=== PATIENT | female | born 1995 | race Caucasian/White ===

== ENCOUNTER → 2023-01-24 12:22 | Outpatient (CLI) | payer OTHER, SELFPAY ==
[2023-01-24 12:56] LABS: Add Manual Diff / Slide Review NO; Basophils Absolute Auto 100 /uL (0-100); Basophils Percent Auto 0.7 % (0-2); Eosinophils Absolute Auto 100 /uL (0-450); Hemoglobin 12.8 g/dL (12.0-16.0); Lymphocytes Absolute Auto 2500 /uL (1100-4500); Lymphocytes Percent Auto 22.2 % (25-40); Mean Corpuscular HGB Conc 34.6 % (30-36); Mean Corpuscular Hemoglobin 30.2 PG (26-34); Mean Corpuscular Volume 87.5 fL (80-100); Monocytes Absolute Auto 600 /uL (0-900); Monocytes Percent Auto 4.8 % (3-14); Neutrophils Absolute Auto 8200 /uL (1500-7000); Neutrophils Percent Auto 71.3 % (50-75); Platelet Count 314 X10^3/uL (150-400); Red Blood Cell Count 4.23 X10^6/uL (4.0-5.2); Red Cell Distribution Width 12.9 % (11.6-14.8); White Blood Cell Count 11.5 X10^3/uL (4.5-11.0)
[2023-01-24 13:23] LABS: Appearance Urine UA CLEAR; Bilirubin Urine UA NEGATIVE (NEGATIVE); Color Urine UA YELLOW; Glucose Urine UA NEGATIVE (Negative); Ketones Urine UA NEGATIVE (NEGATIVE); Leukocyte Esterase Urine UA NEGATIVE (NEGATIVE); Nitrite Urine UA NEGATIVE (Negative); Occult Blood Urine UA NEGATIVE (Negative); Protein Urine UA NEGATIVE (Negative); Urobilinogen Urine UA 0.2 E.U./dL (0.2)
[2023-01-24 16:01] LABS: Hepatitis B Surface Antigen NEGATIVE s/c (NEGATIVE); Rubella Antibody IgG 44.6 IU/mL (>15)
[2023-01-24 16:11] LABS: HIV 1 & 2 Ab/Ag 4th Gen Combo NEGATIVE (NEGATIVE); Hep C Virus Ab w/Reflex Quant NEGATIVE s/c (NEGATIVE)
[2023-01-25 07:50] LABS: Varicella IgG Antibody 785 index (Immune >165)
[2023-01-26 06:01] LABS: RPR Screen Non Reactive (Non Reactive)
== END ==
PROVIDERS: Referring Provider Family Medicine; Visit Provider Family Medicine
DX: Z34.01 Encounter for supervision of normal first pregnancy, first trimester (principal)
CPT/HCPCS: 36415; 80055; 81003; 86787; 86803; 86850; 86900; 86901; 87086; 87389

== ENCOUNTER → 2023-03-23 15:24 | Outpatient (CLI) | payer OTHER, SELFPAY ==
[2023-03-25 20:44] LABS: AFP, Serum 30.8 ng/mL (.); Estriol, Free 1.52 ng/mL (.); Maternal Ethnicity Caucasian (.); Maternal Weight 172 lbs (.); Number of Fetuses No (.); OSBR Risk 1 IN 10000 (.); Results Report (.); Test Results *Screen Negative* (.); hCG, MoM 0.84 (.); hCG, Serum 27040 mIU/mL (.)
== END ==
PROVIDERS: Referring Provider Family Medicine; Visit Provider Family Medicine
DX: Z34.02 Encounter for supervision of normal first pregnancy, second trimester (principal); Z3A.16 16 weeks gestation of pregnancy
CPT/HCPCS: 36415; 82105; 82677; 84702; 86336

== ENCOUNTER → 2023-04-12 07:39 | Outpatient (CLI) | payer OTHER, SELFPAY ==
--- NOTE | 2023-04-12 | DI.US.S_ITS ---
PROCEDURE: US OB >= 14 WEEKS FETUS INDICATIONS: ANATOMY SCAN OUTSIDE/PRIOR DATING DATA: Last menstrual period (LMP): 11/26/2022 LMP-based estimated date of delivery (JAYLEEN): 09/02/2023 First dating scan (date and location): 01/24/2023, images not available. Estimated date of delivery (JAYLEEN) from first dating scan: 08/30/2023 Working JAYLENE is 09/02/2023 as provided by the referring clinician. TECHNIQUE: Real-time scanning was performed of the fetus, with image documentation and biometric measurements. COMPARISON: None. FINDINGS: General: A single living intrauterine gestation is present. Presentation: Breech. Placenta: Placental position is posterior and is marginally low lying 1.9 cm from the cervical os. Amniotic fluid index: 11.5 cm, normal range is 5-24 cm. Single deepest vertical pocket is 3.5 cm. heart rate: 165 beats per minute. Maternal cervical canal: 6.9 cm long. Normal lower limit is 2.5 cm. biometrics: Biparietal diameter: 4.9 cm Head circumference: 18.4 cm Abdominal circumference: 15.6 Femur length: 3.3 cm Clinically estimated gestational age: 19 weeks, 4 days by LMP Composite gestational age from present scan: 20 weeks 4 days Estimated weight and percentile: 353 g, 89th percentile Anatomic survey: Neuro: Ventricles are non-dilated at less than 10 mm. Cisterna magna is normal at 3-11 mm. Cerebellum is normal in size and morphology. Nuchal skin fold: Normal at less than 6 mm between 14-21 weeks gestational age. Face: Nose and lips, facial profile are normal. Spine: No evidence for spina bifida. Heart: 4-chambered heart is present, with normal ventricular outflow tracts. Diaphragm: Diaphragm is intact. Stomach: Left-sided stomach is present. Kidneys: No hydronephrosis. Normal is less than 5 mm in 2nd trimester, less than 7 mm in 3rd trimester. Cord: 3-vessel cord has orthotopic insertion. Bladder: Normal in size. Extremities: All 4 extremities identified. IMPRESSION: 1. Single viable intrauterine with clinical JAYLEEN 09/02/2023 based on LMP, which is concordant with biometry. 2. Normal anatomy. 3. Marginal low-lying placenta 1.9 cm from the cervical os. Recommend short-term follow-up. We strive to produce accurate, complete, and clear reports of imaging services. To assist us in improving patient care, this report was composed using standard report templates and voice recognition software. Therefore, it may contain abnormal punctuation, insertions and/or omissions. Occasional wrong-word or sound-alike substitutions may occur. Though we review the report and make efforts to correct it, we do recommend that the report be read carefully in proper context to recognize any text inaccuracies. Measurement variability for biometric dating: +/- 7 days from 14 weeks to 15 weeks 6 days gestation, +/- 10 days from 16 weeks to 21 weeks 6 days gestation, +/- 2 weeks from 22 weeks to 27 weeks 6 days gestation, +/- 3 weeks for 28 weeks gestation or later. weight reference: 4500 g or EFW >90/95% is considered macrosomia or large for gestational age. EFW <10% is small for gestational age. EFW 5% or less is considered intra-uterine growth restriction. Dictated by: Chikis Kirkpatrick M.D. on 04/12/2023 at 17:16 Approved by: Chikis Kirkpatrick M.D. on 04/13/2023 at 15:03
== END ==
PROVIDERS: Referring Provider Family Medicine; Visit Provider Family Medicine
DX: Z3A.20 20 weeks gestation of pregnancy; O44.42 Low lying placenta NOS or without hemorrhage, second trimester
CPT/HCPCS: 76811

== ENCOUNTER → 2023-05-17 06:51 | Outpatient (CLI) | payer OTHER, SELFPAY ==
--- NOTE | 2023-05-17 06:53 | DI.US.S_ITS ---
PROCEDURE: US OB LIMITED INDICATIONS: LOW-LYING PLACENTA OUTSIDE/PRIOR DATING DATA: Last menstrual period (LMP): 11/26/2022. LMP-based estimated date of delivery (JAYLEEN): 09/02/2023 (working JAYLEEN). First dating scan (date and location): 01/24/2023. Estimated date of delivery (JAYLEEN) from first dating scan: 08/30/2023. TECHNIQUE: Real-time scanning was performed of the fetus, with image documentation. COMPARISON: [facility], OB >= 14 WEEKS FETUS, 04/12/2023, 8:31. FINDINGS: A single living intrauterine gestation is present. Presentation: Transverse. Placenta: Placental position is posterior, without previa. Cervix to lower edge of the placenta now measures 2.2 centimeters. Amniotic fluid index: 17.6 cm, normal range is 5-24 cm. Single deepest vertical pocket is 5.2 cm. heart rate: 144 beats per minute. Maternal cervical canal: 5.1 cm long. Normal lower limit is 2.5 cm. Estimated gestational age is 24 weeks and 4 days IMPRESSION: On these transabdominal images, the inferior edge of the placenta is 2.2 centimeters from the internal os. Dictated by: Raman Daly M.D. on 05/17/2023 at 12:49 Approved by: Raman Daly M.D. on 05/17/2023 at 12:53
== END ==
PROVIDERS: Referring Provider Family Medicine; Visit Provider Family Medicine
DX: Z36.89 Encounter for other specified antenatal screening (principal); Z3A.24 24 weeks gestation of pregnancy
CPT/HCPCS: 76815

== ENCOUNTER → 2023-06-08 11:49 | Outpatient (CLI) | payer OTHER, SELFPAY ==
[2023-06-08 14:22] LABS: Add Manual Diff / Slide Review NO; Basophils Absolute Auto 0 /uL (0-100); Basophils Percent Auto 0.4 % (0-2); Eosinophils Absolute Auto 100 /uL (0-450); Eosinophils Percent Auto 0.9 % (2-4); Hematocrit 35.9 % (36-46); Hemoglobin 12.3 g/dL (12.0-16.0); Lymphocytes Absolute Auto 2000 /uL (1100-4500); Lymphocytes Percent Auto 19.4 % (25-40); Mean Corpuscular HGB Conc 34.1 % (30-36); Mean Corpuscular Hemoglobin 30.8 PG (26-34); Mean Corpuscular Volume 90.1 fL (80-100); Monocytes Absolute Auto 500 /uL (0-900); Monocytes Percent Auto 5.2 % (3-14); Neutrophils Absolute Auto 7500 /uL (1500-7000); Neutrophils Percent Auto 74.1 % (50-75); Platelet Count 255 X10^3/uL (150-400); Red Blood Cell Count 3.98 X10^6/uL (4.0-5.2); White Blood Cell Count 10.2 X10^3/uL (4.5-11.0)
[2023-06-08 14:56] LABS: GTT (PREG) 1 Hour PP 50gm Dose 90 mg/dL (76-139)
== END ==
PROVIDERS: PCP Family Medicine; Referring Provider Family Medicine; Visit Provider Family Medicine
DX: Z34.01 Encounter for supervision of normal first pregnancy, first trimester (principal)
CPT/HCPCS: 36415; 82950; 85025; 86850

== ENCOUNTER → 2023-08-09 11:30 | Outpatient (CLI) | payer OTHER, SELFPAY ==
[2023-08-10 14:09] LABS: Strep Grp B PCR NEG for Grp B Strep
== END ==
PROVIDERS: PCP Family Medicine; Visit Provider Family Medicine
DX: Z34.01 Encounter for supervision of normal first pregnancy, first trimester (principal)
CPT/HCPCS: 87653

== ENCOUNTER 2023-08-26 10:08 | Outpatient (CLI) | payer OTHER, SELFPAY ==
--- NOTE | 2023-08-26 11:00 | P.TNLD_ITS ---
Visit Information Visit Information Date of evaluation: 08/26/23 Primary OB Provider: Susan Chapman Comments/Additional reasons for admission: 28yo at 39w0d here due to concerns for LOF. Pt reports feeling a gush of fluid this morning. She denies any vaginal bleeding or contractions. She is feeling her baby move regularly. [facility] Medical History (Updated 08/26/23 @ 11:16 by Susan Chapman MD) Asthma (~2005) Surgical History (Updated 02/22/23 @ 20:08 by Dahlia Wasserman) Plica of knee (~06/2010) Family History (Updated 02/22/23 @ 20:10 by Dahlia Wasserman) Mother Hypothyroid Father Heart disease Hypertension Hyperlipidemia Grandmother Dementia Grandfather Skin cancer Hodgkin's lymphoma Grandfather COPD (chronic obstructive pulmonary disease) Diabetes mellitus Grandmother Dementia Social History marital status: number of children: 0 household members: spouse lives independently: Yes caregiver/support person: No housing: house pets and animals: Yes (1 cat, 1 dog; manages litter box) education level: college (tam's degree) occupational status: employed (part-time works from home) current occupational exposures/hazards: No special pamela needs: No travel history: recent (domestic, [place]) seatbelt use: always water heater temp set < 120 deg: Yes working smoke detector in home: Yes fire extinguisher in home: Yes carbon monox detector in home: Yes firearms in home: No do you feel safe at home: Yes Smoking Status: Never smoker second hand exposure: No alcohol intake: former (Occasionally when not ) substance use type: does not use during the past year weight has: remained stable well-balanced diet: daily or most days daily servings fruits/ve-4 caffeine: Yes (AM cup coffee) Type(s) of exercise: walking frequency: daily duration: 15-30 minutes/day Evaluation Evaluation Baseline heart rate: 120 Variability: Moderate (11-25) monitor accelerations: Present Monitor Decelerations: Absent Category of Tracing: Reactive Non-invasive Membranes Rupture Test: negative Diagnosis, Plan/Disposition Final Diagnosis (1) Vaginal discharge: Status: Acute Plan/Disposition Plan: 28yo at 39w0d here due to concerns for LOF. Amniosure negative. NST reactive, no contractions. Stable for d/c home. OB Disposition: home
== END 2023-08-26 11:10 | disposition home or self-care (01) ==
LOC: LABOR 10:26 → OB 08-29 11:56
PROVIDERS: PCP Family Medicine; Referring Provider Family Medicine; Visit Provider Family Medicine
DX: N89.8 Other specified noninflammatory disorders of vagina (principal)
CPT/HCPCS: 59025; 84112; G0378; G0379

== ENCOUNTER 2023-08-28 19:27 | Inpatient (IN) | payer OTHER, SELFPAY ==
[2023-08-28 20:59] LABS: Aspartate Aminotransferase 30 IU/L (14-36); BUN Creatinine Ratio 14.3 (6-22); Blood Urea Nitrogen 9 mg/dL (7-17); Estimated Glomerular Filt Rate > 60 mL/min (>60); Uric Acid 4.5 mg/dL (2.5-6.2)
[2023-08-28 21:05] LABS: Add Manual Diff / Slide Review NO; Basophils Absolute Auto 100 /uL (0-100); Basophils Percent Auto 0.6 % (0-2); Eosinophils Absolute Auto 100 /uL (0-450); Eosinophils Percent Auto 0.6 % (2-4); Hematocrit 34.8 % (36-46); Hemoglobin 11.7 g/dL (12.0-16.0); Lymphocytes Absolute Auto 1800 /uL (1100-4500); Lymphocytes Percent Auto 16.5 % (25-40); Mean Corpuscular HGB Conc 33.7 % (30-36); Mean Corpuscular Hemoglobin 30.2 PG (26-34); Mean Corpuscular Volume 89.8 fL (80-100); Monocytes Absolute Auto 500 /uL (0-900); Monocytes Percent Auto 4.9 % (3-14); Neutrophils Absolute Auto 8300 /uL (1500-7000); Neutrophils Percent Auto 77.4 % (50-75); Platelet Count 221 X10^3/uL (150-400); Red Blood Cell Count 3.88 X10^6/uL (4.0-5.2); Red Cell Distribution Width 13.3 % (11.6-14.8); White Blood Cell Count 10.8 X10^3/uL (4.5-11.0)
[2023-08-28] MEDS: miSOPROStoL 25 MCG TABLET 50 MCG PO (21:27)
[2023-08-28 21:44] LABS: Creatinine Urine Random 43.7 mg/dL; Protein (Total) Urine Random 17 mg/dL (0-12); Protein Creatinine Ratio Urine 0.38 GRAM/24H
[2023-08-28 23:13] VITALS: BP 153/85
[2023-08-29] MEDS: miSOPROStoL 25 MCG TABLET 50 MCG PO (01:36)
[2023-08-29] MEDS: LACTATED RINGERS 1,000 ML 100 ML IV ×3 (05:57→13:13)
[2023-08-29] MEDS: OXYTOCIN PREMIX 30 UNIT/500 ML PLAST..BAG IV (05:58)
[2023-08-29] MEDS: FENT 2MCG/ML BUPIV 0.125% EPI 200 MCG/100 ML PLAST..BAG 8 MCG EPIDURAL ×2 (08:00→18:42)
--- NOTE | 2023-08-29 08:12 | PM.OBHP.IH.1 ---
OB HPI Date/Time Date of admission: 08/28/23 Date Patient Seen: 08/29/23 Time Patient Seen: 08:13 History of Present Condition Chief complaint: induction JAYLEEN Calculator Estimated Delivery Date Method Current WG Current Estimate 09/02/23 Manual 39w 3d Final JAYLEEN - CARLTIA Other Estimates 09/02/23 LMP (Certain) 39w 3d 08/30/23 Ultrasound #1 39w 6d Estimated Gestational Age (weeks): 39w3d : 1 Para: 0 Narrative: Pt is a 28yo at 39w3d here for elective IOL. She denies any vaginal bleeding, LOF, contractions prior to presentation. She is feeling her baby move regularly. Her was complicated by marginal placenta previa that resolved on repeat u/s. care: good care, initiated at week # (8) and pounds weight gain (34) Dating criteria OB: LMP confirmed by 1st trimester US Ultrasounds: normal 1st trimester US and normal mid trimester US (marginal previa - resolved on repeat u/s) Obstetrical complications: none Medical complications OB: none Indications Indication for induction OB: other (elective) Preadmission Labs Last OB Lab Results: Blood Type O Positive 08/28/23 20:10 Antibody Screen Negative 08/28/23 20:10 Hematocrit 34.8 % (36-46) L 08/28/23 20:10 Hemoglobin 11.7 g/dL (12.0-16.0) L 08/28/23 20:10 Hepatitis B Surface Antigen Negative s/c (NEGATIVE) 01/24/23 12:32 Hepatitis C Antibody Negative s/c (NEGATIVE) 01/24/23 12:32 Rubella Antibody 44.6 IU/mL (>15) 01/24/23 12:32 Varicella-Zoster IgG Antibody 785 index (Immune >165) 01/24/23 12:32 Glucose 1 Hour 90 mg/dL (76-139) 06/08/23 13:03 Group B Streptococcus (PCR) Neg for grp b strep 08/09/23 11:30 -: Urine: negative Genetic Screens: Quad screen: Normal External Labs -: Urine: negative Evaluation Evaluation Baseline heart rate: 120 Variability: Moderate (11-25) monitor accelerations: Present Monitor Decelerations: Absent Contraction Frequency (minutes): 2 Status: Category l Dilation (cm): 4 Effacement (%): 90 Dilation: 3-4 cm Effacement: >/=80% station: 0 Position of cervix: mid Consistency: soft William score: 10 Comments: After informed consent, AROM performed with copius clear fluid present [facility] Medical History (Updated 08/26/23 @ 11:16 by Susan Chapman MD) Asthma (~2005) Surgical History (Updated 02/22/23 @ 20:08 by Dahlia Wasserman) Plica of knee (~06/2010) Family History (Updated 02/22/23 @ 20:10 by Dahlia Wasserman) Mother Hypothyroid Father Heart disease Hypertension Hyperlipidemia Grandmother Dementia Grandfather Skin cancer Hodgkin's lymphoma Grandfather COPD (chronic obstructive pulmonary disease) Diabetes mellitus Grandmother Dementia Social History marital status: number of children: 0 household members: spouse lives independently: Yes caregiver/support person: No housing: house pets and animals: Yes (1 cat, 1 dog; manages litter box) education level: college (tam's degree) occupational status: employed (part-time works from home) current occupational exposures/hazards: No special pamela needs: No travel history: recent (domestic, [place]) seatbelt use: always water heater temp set < 120 deg: Yes working smoke detector in home: Yes fire extinguisher in home: Yes carbon monox detector in home: Yes firearms in home: No do you feel safe at home: Yes Smoking Status: Never smoker second hand exposure: No alcohol intake: former (Occasionally when not ) substance use type: does not use during the past year weight has: remained stable well-balanced diet: daily or most days daily servings fruits/ve-4 caffeine: Yes (AM cup coffee) Type(s) of exercise: walking frequency: daily duration: 15-30 minutes/day Meds Home Medications and Allergies Home Medications Medication Instructions Recorded Confirmed Type albuterol sulfate 90 mcg/actuation 2 puff inhalation Q6H PRN 12/27/22 08/28/23 History aerosol inhaler Shortness Of Breath epinephrine 0.3 mg/0.3 mL 0.3 mg IM ONCE PRN Anaphylaxis 12/27/22 08/28/23 History injection, auto-injector (EpiPen) prenat.vits,cornel,[id number] 1 tab PO DAILY 12/27/22 08/28/23 History Allergies Allergy/AdvReac Type Severity Reaction Status Date / Time No Known Drug Allergies Allergy Unverified 08/22/23 12:06 OB Exam Resp Effort & Inspection: normal respiratory effort Auscultation: clear to auscultation bilaterally Cardio Rate: regular rate Rhythm: regular rhythm Heart Sounds: S1 normal, S2 normal and no murmurs GI Inspection: non-distended Palpation: Yes soft and No tender Presentation: vertex Objective Labs 08/28/23 20:10 08/28/23 20:10 Labs: Laboratory Results - last 24 hr 08/28/23 08/28/23 08/28/23 20:10 20:10 20:10 WBC Cancelled 10.8 RBC Cancelled 3.88 L Hgb Cancelled Hct MCV MCH MCHC RDW Plt Count Neut % (Auto) Lymph % (Auto) [place] % (Auto) Eos % (Auto) Baso % (Auto) Neut # (Auto) Lymph # (Auto) [place] # (Auto) Eos # (Auto) Baso # (Auto) BUN Creatinine Estimated GFR BUN/Creatinine Ratio Uric Acid AST U Random Total Protein Urine Creatinine Protein/Creatinin Ratio Blood Type Antibody Screen 08/28/23 08/28/23 08/28/23 20:10 20:10 20:10 WBC RBC Hgb 11.7 L Hct Cancelled 34.8 L MCV Cancelled 89.8 MCH Cancelled MCHC RDW Plt Count Neut % (Auto) Lymph % (Auto) [place] % (Auto) Eos % (Auto) Baso % (Auto) Neut # (Auto) Lymph # (Auto) [place] # (Auto) Eos # (Auto) Baso # (Auto) BUN Creatinine Estimated GFR BUN/Creatinine Ratio Uric Acid AST U Random Total Protein Urine Creatinine Protein/Creatinin Ratio Blood Type Antibody Screen 08/28/23 08/28/23 08/28/23 20:10 20:10 20:10 WBC RBC Hgb Hct MCV MCH 30.2 MCHC Cancelled 33.7 RDW Cancelled 13.3 Plt Count Cancelled Neut % (Auto) Lymph % (Auto) [place] % (Auto) Eos % (Auto) Baso % (Auto) Neut # (Auto) Lymph # (Auto) [place] # (Auto) Eos # (Auto) Baso # (Auto) BUN Creatinine Estimated GFR BUN/Creatinine Ratio Uric Acid AST U Random Total Protein Urine Creatinine Protein/Creatinin Ratio Blood Type Antibody Screen 08/28/23 08/28/23 08/28/23 20:10 20:10 20:10 WBC RBC Hgb Hct MCV MCH MCHC RDW Plt Count 221 Neut % (Auto) Cancelled 77.4 H Lymph % (Auto) Cancelled 16.5 L [place] % (Auto) Cancelled Eos % (Auto) Baso % (Auto) Neut # (Auto) Lymph # (Auto) [place] # (Auto) Eos # (Auto) Baso # (Auto) BUN Creatinine Estimated GFR BUN/Creatinine Ratio Uric Acid AST U Random Total Protein Urine Creatinine Protein/Creatinin Ratio Blood Type Antibody Screen 08/28/23 08/28/23 08/28/23 20:10 20:10 20:10 WBC RBC Hgb Hct MCV MCH MCHC RDW Plt Count Neut % (Auto) Lymph % (Auto) [place] % (Auto) 4.9 Eos % (Auto) Cancelled 0.6 L Baso % (Auto) Cancelled 0.6 Neut # (Auto) Cancelled Lymph # (Auto) [place] # (Auto) Eos # (Auto) Baso # (Auto) BUN Creatinine Estimated GFR BUN/Creatinine Ratio Uric Acid AST U Random Total Protein Urine Creatinine Protein/Creatinin Ratio Blood Type Antibody Screen 08/28/23 08/28/23 08/28/23 20:10 20:10 20:10 WBC RBC Hgb Hct MCV MCH MCHC RDW Plt Count Neut % (Auto) Lymph % (Auto) [place] % (Auto) Eos % (Auto) Baso % (Auto) Neut # (Auto) 8300 H Lymph # (Auto) Cancelled 1800 [place] # (Auto) Cancelled 500 Eos # (Auto) Cancelled Baso # (Auto) BUN Creatinine Estimated GFR BUN/Creatinine Ratio Uric Acid AST U Random Total Protein Urine Creatinine Protein/Creatinin Ratio Blood Type Antibody Screen 08/28/23 08/28/23 08/28/23 20:10 20:10 21:20 WBC RBC Hgb Hct MCV MCH MCHC RDW Plt Count Neut % (Auto) Lymph % (Auto) [place] % (Auto) Eos % (Auto) Baso % (Auto) Neut # (Auto) Lymph # (Auto) [place] # (Auto) Eos # (Auto) 100 Baso # (Auto) Cancelled 100 BUN 9 Creatinine 0.63 Estimated GFR > 60 BUN/Creatinine Ratio 14.3 Uric Acid 4.5 AST 30 U Random Total Protein 17 H Urine Creatinine 43.7 Protein/Creatinin Ratio 0.38 Blood Type O Positive Antibody Screen Negative Assessment and Plan Assessment and Plan Assessment and Plan narrative: 28yo at 39w3d here for elective IOL. GBS negative, Rh positive. Received 2 doses of cytotec overnight. Now on pitocin. AROM with copious clear fluid present. - FHT reassuring - GBS negative, no antibiotics indicated - Epidural for pain control now - Continue pitocin titrate as tolerated - Anticipate
--- NOTE | 2023-08-29 08:51 | PM.AN.REGBLK ---
[facility]ional [facility] <Sagrario Saini CRNA - Last Filed: 08/29/23 15:21> Pre-procedure Procedure: Continuous Lumbar Epidural for L&D Attending OB provider: Susan Chapman PMH/ROS narrative: requesting for VENKAT for labor pain. PSH/Anesthesia history narrative: See anesthesia pre-op document. ASA Class: II Labs: Hct 34.8 % (36-46) L 08/28/23 20:10 Hct Cancelled 08/28/23 20:10 Plt Count 221 X10^3/uL (150-400) 08/28/23 20:10 Plt Count Cancelled 08/28/23 20:10 Medications: Current Medications Generic Name Dose Route Start Last Admin Trade Name Freq PRN Reason Stop Dose Admin Butorphanol Tartrate 0.5 mg 08/29/23 08:47 Butorphanol 1 Mg/Ml Vial IV 08/30/23 08:49 Q3HR PRN PRURITUS Calcium Carbonate 1,000 mg 08/28/23 21:07 Calcium Carbonate 500 Mg Tab PO Q4HR PRN Dyspepsia Carboprost Tromethamine 250 mcg 08/28/23 21:07 Carboprost 250 Mcg/Ml Ampul IM Q90M PRN Bleeding Fentanyl 100 mcg 08/28/23 21:07 Fentanyl 100 Mcg/2 Ml Inj IV Q1H PRN Pain, Severe (7-10) Lactated Ringer's 1,000 mls @ 100 mls/hr 08/28/23 21:15 08/29/23 08:48 Lactated Ringers IV 100 mls/hr CONT NOELLE Administration Lactated Ringer's 1,000 mls @ 100 mls/hr 08/28/23 21:15 Lactated Ringers IV CONT NOELLE Oxytocin/Lactated Ringer's 30 unit in 500 mls @ 200 mls/hr 08/28/23 21:07 Oxytocin Premix IV CONT PRN Bleeding Protocol Tranexamic Acid 1,000 mg/ 100 mls @ 200 mls/hr 08/28/23 21:07 Sodium Chloride IV NOW PRN Bleeding Oxytocin/Lactated Ringer's 30 unit in 500 mls @ 2 mls/hr 08/28/23 21:15 08/29/23 05:58 Oxytocin Premix IV 2 milliunit/min TITRATE NOELLE 2 mls/hr Administration Protocol 2 MILLIUNIT/MIN Lidocaine HCl 20 ml 08/28/23 21:07 Lidocaine 1% 20 Ml INJ INTRA-OP PRN Post Delivery Methylergonovine Maleate 0.2 mg 08/28/23 21:07 Methylergonovine 0.2 Mg Tablet PO Q6HR PRN Heavy Bleeding Methylergonovine Maleate 0.2 mg 08/28/23 21:07 Methylergonovine 0.2 Mg/Ml Vial IM NOW PRN Bleeding Metoclopramide HCl 10 mg 08/29/23 08:47 Metoclopramide 10 Mg/2 Ml Inj IV 08/30/23 08:49 Q4H PRN Nausea Misoprostol 800 mcg 08/28/23 21:07 Misoprostol 200 Mcg Tablet MS NOW PRN Bleeding Misoprostol 400 mcg 08/28/23 21:07 Misoprostol 200 Mcg Tablet SL NOW PRN Bleeding Misoprostol 50 mcg 08/28/23 21:15 08/29/23 01:36 Misoprostol 25 Mcg Tablet PO 50 mcg Q4H NOELLE Administration Nalbuphine HCl 5 mg 08/29/23 08:47 Nalbuphine 20 Mg/Ml Ampul IV Q6H PRN PRURITIS Naloxone HCl 0.2 mg 08/28/23 21:07 Naloxone 0.4 Mg/Ml Vial IV Q2MIN PRN Opiate Reversal Naloxone HCl 0.4 mg 08/29/23 08:47 Naloxone 0.4 Mg/Ml Vial IV Q2MIN PRN Opiate Reversal Ondansetron HCl 4 mg 08/28/23 21:07 Ondansetron 4 Mg/2 Ml Inj IV Q4HR PRN Nausea And Vomiting Ondansetron HCl 4 mg 08/29/23 08:47 Ondansetron 4 Mg/2 Ml Inj IV 08/30/23 08:49 Q6HR PRN Nausea Oxytocin 10 unit 08/28/23 21:07 Oxytocin 10 Unit/Ml Vial IM NOW PRN Bleeding Allergies: Allergies Allergy/AdvReac Type Severity Reaction Status Date / Time No Known Drug Allergies Allergy Unverified 08/22/23 12:06 Procedure Insertion date: 08/29/23 Insertion time: 08:14 Prep/Local: 1% lidocaine (chlorhexadine prep to back) Interspace: L2/L3 Patient position: sitting Needle: 18 gauge Hustead Loss of resistance with: saline LEON at (cm): 4 ((4.5)) Catheter placed at SKIN (cm): 12 Catheter in SPACE (cm): 8 Insertion: No CSF, No Blood, No Paresthesia with insertion, No Paresthesia with injection and No Test dose reaction Initial Medications TEST DOSE time: 08:16 TEST DOSE: 1.5% lidocaine with epinephrine 1:200k (mL): 3 BOLUS DOSE time: 08:13 BOLUS DOSE (mL): 0 (no bolus on epidural catheter, but 0.5mL of 0.5% Bupivacaine instilled for SAB via CSE technique prior to catheter insertion) BOLUS DOSE med: other (0.5% Bupivaciane) Infusion INFUSION: 0.125% bupivacaine and with fentanyl 2 mcg/mL Initial rate (mL/hr): 8 (with 5mL demand dose on PCEA, 15min lockout, and 20mL max per hour) Subsequent interventions: 1515 - Visited with pt. Has been comfortable and pushed the PCEA 3 times. Stated she was told she is currently at 9cm. Post-procedure Anesthesia time START: 08:03 <Linda Wood DO - Last Filed: 08/29/23 16:46> Post-procedure Anesthesia time END: 16:31 Post-procedure Anesthesia Assessment: Yes CV function: HR/BP stable, Yes Resp function: RR/sat/airway adequate, Yes Post-op hydration adequate, Yes Pain control adequate, Yes Nausea & vomiting absent, Yes Temperature > 36 C and Yes Mental status appropriate
[2023-08-29 09:13] LABS: HEMOLYSIS < 15 (0-50); Potassium 4.2 mmol/L (3.4-5.1)
[2023-08-29 09:14] LABS: Alanine Aminotransferase 17 IU/L (<35); Albumin 3.5 g/dL (3.5-5.0); Albumin Globulin Ratio 1.1 (1.0-2.8); Alkaline Phosphatase 331 U/L (38-126); Aspartate Aminotransferase 24 IU/L (14-36); BUN Creatinine Ratio 17.9 (6-22); Bilirubin Total 1.1 mg/dL (0.2-1.3); Blood Urea Nitrogen 10 mg/dL (7-17); Calcium 9.4 mg/dL (8.4-10.2); Carbon Dioxide 22 mmol/L (22-32); Chloride 106 mmol/L (98-107); Estimated Glomerular Filt Rate > 60 mL/min (>60); Globulin 3.1 g/dL (1.7-4.1); Glucose 88 mg/dL (70-100); Sodium 134 mmol/L (137-145); Total Protein 6.6 g/dL (6.3-8.2)
[2023-08-29] MEDS: LIDOCAINE 1% 20 ML INJ (16:50)
--- NOTE | 2023-08-29 16:56 | PM.OBPRVD ---
Labor & Delivery Delivery date: 08/29/23 Cervical ripening method: per misoprostal protocol Induction method: per pitocin protocol Delivery augmentation: rupture of membranes Delivery monitor: external FHT and external uterine Route of delivery: Episiotomy description: None L&D Laceration Description: Perineal - 2nd Degree Estimated blood loss (mL): 400 Anesthesia Type: Epidural Complications: None Narrative: PROCEDURE: at 39w3d presented for elective IOL and was admitted to Labor and Delivery. She received 2 doses of cytotec and then was started on pitocin. The patient progressed through the 1st stage over 9 hours. ROM occured at 8:24 with clear fluid. Pain was controlled with an epidural. The patient progressed through the 2nd stage over 1 hour and delivered a viable male with APGARs 8/9 at 16:31 via without complications. The cord was cut and clamped after it stopped pulsating. The placenta delivered with gentle cord traction, and appeared complete. The perineum and vagina were inspected with 2nd degree perineal laceration repaired with 2-O Vicryl. Needle and sponge counts were correct.? The vagina was inspected and no items were left in situ. The pt was doing well with her and her at bedside. PREPROCEDURE DIAGNOSIS: Intrauterine at 39w3d GBS negative RH positive POSTPROCEDURE DIAGNOSIS: Intrauterine at 39w3d, delivered Same as preprocedure [place] Baby 1: Infant gender: Male Presentation: vertex Position: Right Occiput Anterior Placenta delivery description: Spontaneous Cord Vessel Description: 3 Vessels score (1 min): 8 score (5 min): 9 weight: 8 lb 5.653 oz Plan for aftercare: Routine care
[2023-08-30] MEDS: DERMOPLAST SPRAY 20% 60 ML 1 SPRAY TOP (00:45)
[2023-08-30] MEDS: IBUPROFEN 600 MG TABLET PO ×3 (00:46→11:38)
[2023-08-30] MEDS: ACETAMINOPHEN 325 MG TABLET 650 MG PO ×3 (00:46→11:38)
[2023-08-30] MEDS: PRENATAL VIT,CALC/IRON/FOLIC 1 TABLET 1 TAB PO (08:37)
[2023-08-30] MEDS: DOCUSATE 100 MG CAPSULE PO (08:37)
--- NOTE | 2023-08-30 11:01 | PM.OBDS.1 ---
Discharge Providers Provider Date of admission: 08/28/23 19:27 Discharge Date: 08/30/23 Primary care physician: Susan Chapman MD Consults: 08/28/23 21:07 Consult to Anesthesiology Urgent Comment: Consulting Provider: Anesthesiologist Reason for consultation: Epidural 08/30/23 16:59 Consult to [employer] Pulper Routine Comment: Discharge provider: Susan Chapman MD Summary Hospital Course Date Patient Seen: 08/30/23 Diagnoses: Intrauterine at 39w3d GBS negative RH positive Hospital Course: The pt presented for elective IOL. She received cytotec and pitocin. AROM was performed with clear fluid present. She progressed to complete and had an of a viable baby boy without complications. A 2nd degree perineal laceration was then repaired. , there were no complications. At the time of discharge she was voiding, ambulating, and passing flatus without difficulty. Her lochia was decreasing appropriately. Her pain was well controlled. She was with good latch. She will f/u in 6 weeks for check. She is undecided regarding contraception. Peripartum Data Delivery Method: Natural Vaginal Laceration Description: Perineal - 2nd Degree Episiotomy description: None Procedures: Spontaneous vaginal delivery complications: none [place] 1: Gender: Male Disposition of : home Time Spent with Patient Time attestation: Total time spent providing and/or coordinating discharge services: Objective Labs 08/28/23 20:10 08/29/23 08:48 Exam Narrative Exam Narrative: Gen: NAD, sitting comfortably in bed, appears well CV: RRR, no murmurs Resp: clear to auscultation bilaterally Abd: soft, appropriately tender, fundus firm and below the umbilicus, nondistended Ext: no edema Discharge Plan Discharge Plan Patient Disposition: Home Discharge orders & Medications Prescriptions: New acetaminophen 325 mg Tablet 650 mg PO Q6HR PRN (Reason: Pain, Mild (1-3)) Qty: 30 0RF docusate sodium 100 mg Capsule 100 mg PO DAILY Qty: 30 0RF ibuprofen 600 mg Tablet 600 mg PO Q6HR PRN (Reason: Pain, Mild (1-3)) Qty: 30 0RF Continued prenat.vits,cornel,[id number] Tablet 1 tab PO DAILY albuterol sulfate 90 mcg/actuation HFA aerosol inhaler 2 puff inhalation Q6H PRN (Reason: Shortness Of Breath) epinephrine [EpiPen] 0.3 mg/0.3 mL auto-injector 0.3 mg IM ONCE PRN (Reason: Anaphylaxis) Rx Instructions: as a single dose; may repeat once Follow up/Referrals: Susan Chapman MD [Primary Care Provider] - 10/10/23 2:00 pm Visit Report/Discharge Packet Stand Alone Forms: Discharge: Care, Patient Portal/API, Stroke Signs & Symptoms Discharge Data Primary Care Provider: Susan Chapman
== END 2023-08-30 14:25 | disposition home or self-care (01) | DRG 807 ==
PROVIDERS: Admitting Provider Family Medicine; PCP Family Medicine; Referring Provider Family Medicine; Visit Provider Family Medicine
DX: O99.892 Other specified diseases and conditions complicating childbirth (principal); Z37.0 Single live birth; R03.0 Elevated blood-pressure reading, without diagnosis of hypertension; O70.1 Second degree perineal laceration during delivery; Z3A.39 39 weeks gestation of pregnancy
CPT/HCPCS: 36415; 59050; 59200; 59400; 80053; 82570; 84156; 84450; 84550; 85025; 86850; 86900; 86901; G0379; J2590